=== PATIENT | female | born 1995 | race Caucasian/White ===

== ENCOUNTER 2016-12-25 18:30 | Emergency (ER) | payer SELFPAY ==
[~2016-12-25] VITALS: Ht 162.6 cm; Wt 62.0 kg
[2016-12-25 18:31] VITALS: BP 113/62
[2016-12-25] MEDS ORDERED: ALBU2.5V13 IH (18:35)
== END 2016-12-25 19:11 | disposition left against medical advice (07) ==
LOC: ER 18:44
DX: Z53.21 Procedure and treatment not carried out due to patient leaving prior to being seen by health care provider (principal)